=== PATIENT | male | born 1930 | race Caucasian/White ===

== ENCOUNTER → 2016-09-17 | Outpatient (CLI) | payer MEDICARE, BC ==
[~2016-09-17] MED LIST: ATIVAN PO; BACTRIM DS TABL1 TAB PO; CIPRO PO; FLOMAX0.4 MG PO; HYDROCODONE-APA1 T56 PO; LORAZEPAM1 MG PO; NAMENDA XR28 MG PO; PAIN RELIEF650 MG PO; PHENERGAN PO; PHENERGAN25 MG PO; PREVAGEN; SINUS MED; TAMOXIFEN CITRA20 MG PO; TYLOX1 CAP 5/50 PO
--- NOTE | ~2016-09-17 | CR181 ---
[facility] A Service of [facility] RADIOLOGY TEXT RESULTS PATIENT: ERASTO TABARES LOCATION: [facility] : 31 UNIT #: [id number] AGE: [address]: Hermes Mahmood MD SEX: M ORDER DR: [id number] [facility] [address] [place], [place] [address] [id number] O MR#: [id number] Acc #: [id number] NAME: ERASTO TABARES. : 1930 SEX: M STUDY DATE/TIME: 09/17/2016 12:12 UNIT: [facility] ROOM: STUDY DESCRIPTION: CR Lumbar Spine 2 or 3 Views Attending Physician: Hermes Mahmood M.D. Ordering Physician: Hermes Mahmood M.D. Primary Care Physician: Vladimir Mccartney M.D. MEDICAL IMAGING REPORT This report is preliminary unless electronic signature is present EXAM Lumbar spine, 3 views, 09/17/2016. COMPARISON None HISTORY 2-week history of low back pain, recent fall. FINDINGS There is marked osteopenia, and there are several mild compression deformities, but all appear chronic. There is no convincing acute abnormality, though the degree of osteopenia limits the exam. Dictated by... Jona Rivas M.D. THIS IS AN ELECTRONICALLY VERIFIED REPORT Jona Rivas M.D. at 09/22/2016 1:25 PM TEV/javon TD: 09/17/2016 18:35 JOB #: [id number] MEDICAL IMAGING REPORT Page 1 of 1 COPY
== END | disposition home or self-care (01) ==
LOC: CRAD 11:50
DX: C50.922 Malignant neoplasm of unspecified site of left male breast (principal); F03.90 Unspecified dementia, unspecified severity, without behavioral disturbance, psychotic disturbance, mood disturbance, and anxiety
CPT/HCPCS: 72100

== ENCOUNTER 2016-11-11 21:01 | Inpatient (IN) | payer MEDICARE, BC ==
--- NOTE | ~2016-11-11 | CO ---
Unit #: [id number] #: [id number] Patient: ERASTO TABARES [id number] [address] [place], [place] [address] [id number] I MR#: [id number] NAME: ERASTO TABARES. ROOM: [facility] Age: 86 Sex: M Admission Date: 11/12/2016 : 1930 Attending Physician: Yehuda Colon M.D. Primary Care Physician: Vladimir Mccartney M.D. CONSULTATION REPORT CHIEF COMPLAINT Left male breast cancer, mastectomy, triple positive, Taxol, receiving Herceptin, fall, fracture of the pubic ramus. This is Dr. Mahmood's patient. HISTORY OF PRESENT ILLNESS This is an 86-year-old male who was diagnosed with left breast cancer during November 2016. Patient had a mastectomy. The tumor is triple positive. 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 He first received Taxol. At present he is receiving Herceptin and tamoxifen. The last dose was a week ago. He fell and he had a CT of the abdomen and the pelvis that showed fracture of the inferior pubic ramus. It is nondisplaced. Patient also had T12 compression fracture. At present he is on supportive care. He is not a candidate for surgery. He has some memory problems that are gradually worsening. REVIEW OF SYSTEMS CONSTITUTIONAL: No fever, no chills, no sweats, no weight loss. EYES: No visual symptoms. EARS, NOSE AND THROAT: There is no runny nose or sore throat or difficulty hearing. CARDIOVASCULAR: No chest pain. No shortness of breath. No palpitations. No orthopnea. No PND. RESPIRATORY: No cough. No wheezing. No hemoptysis. GASTROINTESTINAL: No nausea, vomiting, diarrhea, constipation, hematochezia or melena. GENITOURINARY: No urinary frequency, hesitancy or urgency. No blood in the urine. MUSCULOSKELETAL: as mentioned above. NEUROLOGIC: No headache. No numbness or tingling. No weakness. No seizure. PSYCHIATRIC: No anxiety, depression or mood disturbance. ENDOCRINE: No excessive urination or thirst. DERMATOLOGIC: No rash or change in the skin. ALLERGIC/IMMUNOLOGIC: No symptoms. HEMATOLOGIC/LYMPHATIC: Denies any symptoms. PAST MEDICAL HISTORY 1. Male breast cancer, triple positive. 2. Worsening dementia. Unit #: [id number] #: [id number] Patient: ERASTO TABARES ALLERGIES Penicillin. SOCIAL HISTORY Nonsmoker, no alcohol, no drugs, used to work in a chemical factory. PAST SURGICAL HISTORY 1. Left breast mastectomy. 2. Appendectomy. FAMILY HISTORY He has multiple half brothers. They have cancer. The patient has just one daughter. PHYSICAL EXAMINATION GENERAL: Patient is comfortable. ECOG is 0. The patient is pleasant. VITAL SIGNS: Afebrile, pulse 75, respiratory rate 18, O2 sat on room air is 95% and blood pressure 97/62. HEENT: Moist mucosa. Pupils equally reactive to light. Extraocular muscles intact. Sclerae anicteric. No obvious bleeding from nasal mucosa or oral mucosa. Scalp normal. Hearing normal. NECK: No JVD. No lymphadenopathy. LYMPHATIC/HEMATOLOGIC: There is no palpable adenopathy in the neck, axilla or inguinal area. CARDIOVASCULAR: S1, S2. Regular rate and rhythm. No S3 or S4. RESPIRATORY: Chest symmetrical, normal. Clear to auscultation bilaterally. No wheezes, no rales, no rhonchi. No dullness to percussion. ABDOMEN/GASTROINTESTINAL: Abdomen is soft, nontender, nondistended. No hepatosplenomegaly. EXTREMITIES: There is no clubbing, no cyanosis, no edema. No varicose veins. NEUROLOGICAL: Patient is alert, awake and oriented x3. Cranial nerves II-XII are intact. Sensory grossly intact. Motor is 4/5 in all four extremities. Gait is normal. Station is normal. Language is normal. Memory is normal. DTRs +2 in all four extremities. MUSCULOSKELETAL: No joint swelling. No bony tenderness. No muscle tenderness. SKIN: No petechiae, no rash, no ecchymosis. PSYCHIATRIC: No anxiety. No delusions or hallucinations. There is no agitation. Eye contact is normal. Affect is appropriate. There is no flight of ideas. DIAGNOSTIC STUDIES IMAGING: CT scan as mentioned above. LABORATORY: Last creatinine 0.8. LFTs are normal. WBC 13.1, hemoglobin 13.9 and platelets 200. ASSESSMENT AND PLAN This is an 86-year-old male with the following active issues: 1. Breast cancer. The patient has a left-sided breast cancer. This is a unique situation. He had a mastectomy. It is triple positive. He first received Taxol. He is receiving Herceptin and tamoxifen. Once his acute condition resolves then he will go and complete Herceptin for one year. He will continue tamoxifen. 2. Orthopedics. He has a fracture of the inferior left pubic ramus. It is nondisplaced. I reviewed the orthopedic notes. He is on supportive care. No surgery. He also has a compression fracture of Unit #: [id number] #: [id number] Patient: ERASTO TABARES thoracic 12, again he is on supportive care. 3. Memory. I had an extensive discussion with patient during last one year he had a significant decline in performance status. His memory is worsening. Prognosis is guarded Dictated by... Aleksey Collado M.D. LAVELL/yair TD: 11/12/2016 18:35 JOB #: [id number] CONSULTATION REPORT Page 1 of 1 X Aleksey Collado MD X CONSULTATION REPORT
--- NOTE | ~2016-11-11 | HP ---
Unit #: [id number] #: [id number] Patient: ERASTO TABARES [id number] [address] [place], [place] [address] [id number] I MR#: [id number] NAME: ERASTO TABARES ROOM: 466 Age: 86 Sex: M Admission Date: 11/12/2016 : 1930 Attending Physician: Hillary Rowland M.D. Primary Care Physician: Vladimir Mccartney M.D. HISTORY AND PHYSICAL CHIEF COMPLAINT Left inferior pelvic ramus fracture. HISTORY This pleasant, 86-year-old male currently being treated for metastatic breast cancer with some early dementia is admitted for left groin pain following a fall. Last evening, the patient slipped and fell mainly onto his left and buttocks, did hit his head around 8:00 p.m. Had difficulty ambulating afterwards. He was brought to this emergency department late last evening with stable vital signs. Does have left groin discomfort with movement of his left leg. In the course of his evaluation, x-rays demonstrate a left inferior pelvis ramus fracture, which is nondisplaced. Due to some complaints of mid to lower back pain, ongoing for the past week, a CT scan was performed of the abdomen showing a T12 fracture with 25% loss of height, but with some sclerosis. Rule out pathologic fracture. Also noted was a right 11th posterior rib fracture. Patient is actually able to sit up without difficulty and does not complain of right rib pain. PAST MEDICAL HISTORY 1. Mild dementia. 2. Breast cancer, status post left mastectomy, 01/07/2016. Patient was found to have one out of four positive lymph nodes. Was unable to complete chemotherapy as he was unable to tolerate the side effects. Takes tamoxifen and Herceptin. 3. Hernia repair. 4. TURP. 5. Appendectomy. ALLERGIES To latex. HOME MEDICATIONS Sleeping aid and what sounds to be Namenda and tamoxifen. FAMILY HISTORY Noncontributory given patient's age. SOCIAL HISTORY The patient lives with his . He is a lifelong nonsmoker and does not drink alcohol. REVIEW OF SYSTEMS Unit #: [id number] #: [id number] Patient: ERASTO TABARES Somewhat difficult to obtain due to patient's confusion. PHYSICAL EXAMINATION GENERAL APPEARANCE: Pleasantly confused, young-appearing, 86-year-old male currently is in no acute distress. VITAL SIGNS: Temperature 98.3, pulse 68, respirations 16, blood pressure 105/63, and O2 saturation is 98% on room air. HEENT: Eyes: PERRLA. Extraocular muscles are intact. Pharynx: Benign. NECK: Supple without adenopathy or thyromegaly. CHEST: Clear. BACK: Without percussion tenderness over the spine. CARDIAC: Normal S1 and S2 with a very soft systolic murmur. ABDOMEN: Bowels sounds are present. No hepatosplenomegaly, tenderness, or masses. EXTREMITIES: Without edema. Movement of the left hip causes some left groin discomfort. NEUROLOGIC: Patient is oriented to person and, I believe, to place, but he is pleasantly confused. His cranial nerves are intact. He has equal strength throughout. DIAGNOSTIC STUDIES ADMISSION LABORATORY: Hematocrit is 43.1, white blood count is 13.1, and normal platelet count. Cardiac markers are negative. Normal coags. SMA-12 normal, except for an AST of 141. Urinalysis negative. IMAGING: Chest x-ray: No acute disease. X-ray of the left hip: Left inferior pelvic ramus fracture, which is nondisplaced. CT of the head: Atrophy with small vessel ischemic disease. CT scan of the abdomen shows a T12 fracture with 25% loss of height, but with some sclerosis. Rule out pathologic fracture. Also, a right 11th posterior rib fracture. ASSESSMENT 1. Mechanical fall with left inferior pelvic ramus fracture. 2. T12 fracture, rule out metastatic disease. 3. Right 11th rib fracture. 4. Breast cancer with mastectomy last year. Patient was found to have one out of four positive lymph nodes. He was unable to complete a full course of chemotherapy due to side effects. Currently takes tamoxifen and Herceptin. 5. Dementia. PLANS 1. Gentle pain control. 2. DVT prophylaxis. 3. Orthopedic surgeon to determine when patient can ambulate. 4. MRI of the T12 vertebra. 5. Verify home medicines. Dictated by Hillary Rowland M.D. Unit #: [id number] #: [id number] Patient: ERASTO TABARES AML/pc TD: 11/12/2016 05:15 JOB #: [id number] HISTORY AND PHYSICAL Page 1 of 1 X Hillary Rowland MD X HISTORY AND PHYSICAL
--- NOTE | ~2016-11-11 | CT71 ---
[facility] A Service [facility] RADIOLOGY TEXT RESULTS PATIENT: ERASTO TABARES LOCATION: [facility] : 31 UNIT #: [id number] AGE: [address]: Hillary Rowland MD SEX: M ORDER DR: [id number] [facility] [address] [place], [place] [address] [id number] I MR#: [id number] Acc #: [id number] NAME: ERASTO TABARES. : 1930 SEX: M STUDY DATE/TIME: 11/11/2016 23:12 UNIT: [facility] ROOM: [facility] STUDY DESCRIPTION: CT Head Wo Contrast Attending Physician: Hillary Rowland M.D. Ordering Physician: Von Redman D.O. Primary Care Physician: Vladimir Mccartney M.D. MEDICAL IMAGING REPORT This report is preliminary unless electronic signature is present EXAM CT head INDICATIONS Fall. Headache. Confusion. TECHNIQUE CT head without contrast. This CT exam was performed with one or more of the following radiation dose reduction techniques: Automatic exposure control, adjustment of mA and/or kV according to patient size, and iterative reconstruction. COMPARISON CT head 04/09/2010. FINDINGS There is no acute intracranial hemorrhage, mass lesion, or acute infarct. There is generalized global cerebral atrophy and chronic small vessel changes. The ventricles and basilar cisterns are normal in size and configuration. No extraaxial collections. There is some mild mucosal thickening in the paranasal sinuses. IMPRESSION 1. No acute traumatic findings. Atrophy and chronic small vessel changes. Dictated by... Enio George M.D. THIS IS AN ELECTRONICALLY VERIFIED REPORT Enio George M.D. at 11/12/2016 4:19 AM [facility] A Service [facility] RADIOLOGY TEXT RESULTS PATIENT: ERASTO TABARES LOCATION: [facility] : 31 UNIT #: [id number] AGE: [address]: Hillary Rowland MD SEX: M ORDER DR: TD: 11/12/2016 04:15 JOB #: [id number] MEDICAL IMAGING REPORT Page 1 of 1 COPY
--- NOTE | ~2016-11-11 | CO ---
Unit #: [id number] #: [id number] Patient: ERASTO HERNANDEZ [id number] [address] [place], [place] [address] [id number] I MR#: [id number] NAME: ERASTO HERNANDEZ ROOM: 466 Age: 86 Sex: M Admission Date: 11/12/2016 : 1930 Attending Physician: Hillary Rowland M.D. Primary Care Physician: Vladimir Mccartney M.D. CONSULTATION REPORT CHIEF COMPLAINT Left inferior pubic ramus fracture. HISTORY OF PRESENT ILLNESS Mr. Hernandez is an 86-year-old gentleman who presents with a history of left hip and groin pain after a fall. He has been diagnosed with an inferior pubic ramus fracture. He is seen today at his hospital bed with his daughter. He is complaining of minimal pain at rest. PAST MEDICAL HISTORY Breast cancer with positive lymph nodes. He is followed by Dr. Mahmood and has been on Herceptin. Additionally, he has had some posterior rib or flank pain over the past week, as well as some low back pain. CT scan is available for review as well. PAST MEDICAL HISTORY 1. Breast cancer status post left mastectomy with positive lymph node, currently on tamoxifen and Herceptin. 2. Mild dementia. PAST SURGICAL HISTORY 1. Herniorrhaphy. 2. TURP. 3. Appendectomy. SOCIAL HISTORY The patient lives with his . He has no alcohol, tobacco or illicit drug use. FAMILY HISTORY Not contributory to the current illness. ALLERGIES Latex. HOME MEDICATIONS Unknown. He takes unknown sleep agent as well as medication for dementia. REVIEW OF SYSTEMS Ten systems are reviewed and positive as noted above in the HPI for known breast cancer and preceding musculoskeletal pain. PHYSICAL EXAMINATION GENERAL APPEARANCE: Age appropriate appearing gentleman examined supine Unit #: [id number] #: [id number] Patient: ERASTO HERNANDEZ in his hospital bed, no acute distress. PSYCHIATRIC: Awake, alert and oriented to person, place, time and situation with a normal range of mood and affect. HEENT: Normocephalic, atraumatic cranium. Pupils equal, round and reactive to light. CARDIAC: Regular rate and rhythm. PULMONARY: No increased work of breathing. Symmetric chest rise. ABDOMEN: Nondistended. NEUROLOGIC: Grossly intact throughout, moving all four extremities well. No gross motor or sensory deficits. SKIN: No overlying skin rashes, ulcers or lesions are noted. VASCULAR: His feet are warm and well perfused. LYMPHATIC: No evidence of lymphedema. MUSCULOSKELETAL: He has no pain with log rolling or passive range of motion to the left hip. He tolerates hip flexion to at least 100 degrees with internal and external rotation without difficulty. DIAGNOSTIC STUDIES IMAGING: Plain film radiographs of the pelvis demonstrates a left inferior pubic ramus fracture. There is no obvious superior ramus fracture. It is difficult to determine if this is pathologic in nature by plain film radiographs. CT scan of the abdomen and pelvis shows a T12 fracture with some suggestion of possible pathologic fracture. Note is made of a right 11th posterior rib fracture as well. IMPRESSION An 86-year-old gentleman with a history of lymph node positive breast cancer now with multiple fractures including left inferior pubic ramus fracture, T12 vertebral body fracture and right 11th posterior rib fracture. Overall findings are concerning for metastatic breast cancer. PLAN In regard to his left pubic ramus fracture, he may be weightbearing as tolerated. We will have him seen and evaluated by Physical Therapy to determine whether or not he is suitable to be discharged home or may require rehab placement. His T12 compression fracture may be managed symptomatically. If he has continued pain, he may benefit from bracing. We will further assess this once he is up and ambulatory. No treatment is required for his rib fracture. We will ask Dr. Mahmood to see him in consultation as well to see if further workup is warranted for metastatic disease. He is an established patient of Dr. Mahmood. Thank you for the consult. Dictated by... Trenton Pitt M.D. SUZANNE/zhao TD: 11/12/2016 09:02 JOB #: [id number] Unit #: [id number] #: [id number] Patient: ERASTO HERNANDEZ CONSULTATION REPORT Page 1 of 1 X Trenton Pitt MD CONSULTATION REPORT
--- NOTE | ~2016-11-11 | CR72 ---
[facility] A Service of [facility] & [facility] RADIOLOGY TEXT RESULTS PATIENT: ERASTO TABARES LOCATION: [facility] [address] : [birth year] UNIT #: [id number] AGE: [address]: Yehuda Colon MD SEX: M ORDER DR: [id number] [facility] [address] [place], [place] [address] [id number] I MR#: [id number] Acc #: [id number] NAME: ERASTO TABARES. : 1930 SEX: M STUDY DATE/TIME: 11/12/2016 0:24 UNIT: [facility] ROOM: [facility] STUDY DESCRIPTION: CR Chest Single View Portable Attending Physician: Hillary Rowland M.D. Ordering Physician: Von Redman D.O. Primary Care Physician: Vladimir Mccartney M.D. MEDICAL IMAGING REPORT This report is preliminary unless electronic signature is present EXAM Single view chest INDICATION Fall. Weakness. Back pain. FINDINGS A single portable AP view of the chest compared to 09/04/2006. The heart and mediastinal contours are unchanged. There is mild tortuosity of the thoracic aorta. There is background COPD. No focal consolidation. No pleural effusion. IMPRESSION No acute cardiopulmonary findings. Dictated by... Enio George M.D. THIS IS AN ELECTRONICALLY VERIFIED REPORT Enio George M.D. at 11/15/2016 2:13 PM BALBINA/kennedy TD: 11/12/2016 06:48 JOB #: [id number] MEDICAL IMAGING REPORT Page 1 of 1 COPY
--- NOTE | ~2016-11-11 | CR150 ---
[facility] A Service of [facility] RADIOLOGY TEXT RESULTS PATIENT: ERASTO TABARES LOCATION: [facility] [address] : [birth year] UNIT #: [id number] AGE: [address]: Yehuda Colon MD SEX: M ORDER DR: [id number] [facility] [address] [place], [place] [address] [id number] I MR#: [id number] Acc #: [id number] NAME: ERASTO TABARES. : 1930 SEX: M STUDY DATE/TIME: 11/11/2016 23:21 UNIT: [facility] ROOM: [facility] STUDY DESCRIPTION: CR Hip Min 2 Views Lt Attending Physician: Hillary Rowland M.D. Ordering Physician: Von Redman D.O. Primary Care Physician: Vladimir Mccartney M.D. MEDICAL IMAGING REPORT This report is preliminary unless electronic signature is present EXAM Left hip INDICATION Trauma. Left leg pain. FINDINGS There is a nondisplaced fracture of the inferior pubic ramus. The left hip aligns anatomically. There is mild osteoarthritis of both hips. IMPRESSION Nondisplaced fracture of the inferior pubic ramus. Dictated by... Enio George M.D. THIS IS AN ELECTRONICALLY VERIFIED REPORT Enio George M.D. at 11/15/2016 4:15 PM BALBINA/kennedy TD: 11/12/2016 06:16 JOB #: [id number] MEDICAL IMAGING REPORT Page 1 of 1 COPY
--- NOTE | ~2016-11-11 | CR181 ---
[facility] A Service of [facility] RADIOLOGY TEXT RESULTS PATIENT: ERASTO ATBARES LOCATION: [facility] 466-01 : 31 UNIT #: [id number] AGE: [address]: Yehuda Colon MD SEX: M ORDER DR: [id number] [facility] [address] [place], [place] [address] [id number] I MR#: [id number] Acc #: [id number] NAME: ERASTO TABARES. : 1930 SEX: M STUDY DATE/TIME: 11/11/2016 23:18 UNIT: [facility] ROOM: [facility] STUDY DESCRIPTION: CR Lumbar Spine 2 or 3 Views Attending Physician: Hillary Rowland M.D. Ordering Physician: Von Redman D.O. Primary Care Physician: Vladimir Mccartney M.D. MEDICAL IMAGING REPORT This report is preliminary unless electronic signature is present EXAM Lumbar spine INDICATION Low back pain status post fall. Radiation in left leg. FINDINGS Three views of the lumbar spine compared to CT abdomen dated 11/11/2016. There is generalized osteopenia of the lumbar spine. There is a T12 fracture better visualized on the recent CT. Multilevel degenerative changes are noted. IMPRESSION 1. Generalized osteopenia of the lumbar spine. 2. T12 fracture better visualized on today's CT abdomen. Dictated by... Enio George M.D. THIS IS AN ELECTRONICALLY VERIFIED REPORT Enio George M.D. at 11/15/2016 4:15 PM BALBINA/kennedy TD: 11/12/2016 06:11 JOB #: [id number] MEDICAL IMAGING REPORT Page 1 of 1 COPY
--- NOTE | ~2016-11-11 | DS ---
Unit #: [id number] #: [id number] Patient: ERASTO HERNANDEZ [id number] [address] [place], [place] [address] [id number] I MR#: [id number] NAME: ERASTO HERNANDEZ. ROOM: [facility] Age: 86 Sex: M Admission Date: 11/12/2016 : 1930 Discharge Date: 11/15/2016 Attending Physician: Yehuda Colon M.D. Primary Care Physician: Vladimir Mccartney M.D. DISCHARGE SUMMARY PRINCIPAL DIAGNOSES 1. Left inferior pubic ramus fracture, traumatic. 2. Thoracic 12 compression fracture, ? traumatic versus pathologic. 3. Right eleventh rib fracture, ? traumatic versus pathologic. 4. Left breast cancer, currently maintained on tamoxifen. 5. Iron deficiency anemia. 6. Mild protein malnutrition. 7. Dementia. 8. Anxiety. CONSULTANTS 1. Dr. Pitt, orthopedic surgery. 2. Dr. Collado, oncology. DIAGNOSTIC STUDIES IMAGING: CT of the head without contrast on November 11, 2016 with atrophy and chronic small vessel change noted. CT of abdomen and pelvis without contrast on November 11, 2016 with acute fracture of the T12 vertebra resulting in 25% anterior height loss. There was generalized sclerosis of the vertebral body concerning for questionable pathologic fracture. There is a right posterior rib fracture involving the T11 vertebra, nondisplaced fracture involving the inferior left pubic ramus. Lumbar X-ray on November 11, 2016 with generalized osteopenia. X-ray of left hip on November 11, 2016 with nondisplaced fracture of the inferior pubic ramus. Chest x-ray on November 12, 2016 with changes of COPD. No other acute findings. CLINICAL HISTORY AND HOSPITAL COURSE Mr. Hernandez is a nice 86-year-old male who presented to the emergency department with left hip pain after a fall at home. Please refer to H and P for further details. Imaging in the emergency department revealed a left inferior pubic ramus fracture that was nondisplaced. Further imaging revealed a T12 compression fracture in addition to a right rib fracture in association with T11. The patient was subsequently admitted. The patient was seen in consultation by orthopedic surgery, but there is no need for surgical intervention. The patient can be weightbearing as tolerated and follow up with hematology/oncology and/or his primary care Unit #: [id number] #: [id number] Patient: ERASTO HERNANDEZ physician with x-ray in approximately 4 weeks to ensure improvement. Dr. Collado was consulted given there is concern that, perhaps, the patient's compression fracture and rib fracture were pathologic. However, I will note at this time the patient has not tolerated any chemotherapy and is being maintained on tamoxifen and Herceptin only. I believe plan is for the patient to go to rehab and then evaluation for possible pathologic fracture will be done as an outpatient. The patient's other chronic conditions all remained stable. He was found to be mildly iron deficient, and he has been placed on iron supplementation. He will be discharged to rehab when bed is available. DISCHARGE CONDITION Stable. DISCHARGE STATUS Discharge to rehab. DISCHARGE MEDICATIONS 1. Tylenol 650 mg p.o. q.6 hours p.r.n. pain. 2. Tamoxifen 20 mg daily. 3. Ativan 0.5 mg p.o. q.8 hours p.r.n. anxiety. 4. Namenda XR 28 mg daily. 5. Ferrous gluconate 324 mg daily. DISCHARGE INSTRUCTIONS Patient was instructed to follow a heart healthy diet. He can increase his activity as tolerated and, again, is weightbearing as tolerated on the left lower extremity. FOLLOW-UP 1. Patient will follow up with Dr. Mccartney upon discharge from rehab. 2. Patient will follow up with Dr. Collado in approximately 2-3 weeks, as well, after discharge from rehab. 3. Will require repeat imaging of the left pelvis to ensure improvement in fracture. NOTE: Time spent on discharge - 31 minutes. Dictated by... Liz Willams M.D. TATIANNA/brinda TD: 11/15/2016 13:49 JOB #: [id number] Unit #: [id number] #: [id number] Patient: ERASTO HERNANDEZ DISCHARGE SUMMARY Page 1 of 1 X Liz Willams MD DISCHARGE SUMMARY
--- NOTE | ~2016-11-11 | CT4 ---
[facility] A Service of [facility] RADIOLOGY TEXT RESULTS PATIENT: ERASTO TABARES LOCATION: [facility] 466-01 : 31 UNIT #: [id number] AGE: [address]: Yehuda Colon MD SEX: M ORDER DR: [id number] [facility] [address] [facility]. [place], [place] [address] [id number] MR#: [id number] Acc #: [id number] NAME: ERASTO TABARES. : 1930 SEX: M STUDY DATE/TIME: 11/11/2016 23:14 UNIT: [facility] ROOM: Counts include 234 beds at the [facility] STUDY DESCRIPTION: CT Abd and Pelv Wo Cont Attending Physician: Hillary Rowland M.D. Ordering Physician: Von Redman D.O. Primary Care Physician: Vladimir Mccartney M.D. MEDICAL IMAGING REPORT This report is preliminary unless electronic signature is present EXAM CT abdomen and pelvis INDICATION Fall. Confusion. Generalized abdominal pain. Trauma. TECHNIQUE CT of the abdomen and pelvis without contrast. Coronal and sagittal reconstructions were obtained. This CT examination was performed with one or more of the following radiation dose reduction techniques: automatic exposure control, adjustment of mA and/or kV according to patient size, and iterative reconstruction. COMPARISON CT abdomen 10/06/2006. FINDINGS ABDOMEN: There is emphysema in the lung bases. Noncontrasted evaluation of the solid abdominal organs shows no evidence of trauma. There are a few benign renal cysts. The bowel is not dilated. The abdominal aorta is tortuous, however there is no aneurysm. PELVIS: The bladder is unremarkable. The patient has postsurgical change of transurethral prostatic resection. There is no enlarged pelvic or inguinal lymph nodes. There is a nondisplaced fracture through the inferior left pubic ramus. There is an acute fracture involving the T12 vertebra. This results in 25% anterior height loss with minimal posterior height loss. No retropulsion. There is some generalized sclerosis of the vertebral body. This could potentially represent a pathologic fracture. [facility] A Service [facility] RADIOLOGY TEXT RESULTS PATIENT: ERASTO TABARES LOCATION: [facility] 466- : 31 UNIT #: [id number] AGE: [address]: Yehuda Colon MD SEX: M ORDER DR: IMPRESSION 1. Acute fracture of the T12 vertebra resulting in approximately 25% anterior height loss. There is some generalized sclerosis of the vertebral body raising the possibility of a pathologic fracture. Consider further evaluation with a MRI with and without contrast. 2. Not mentioned above, there is a right posterior rib fracture involving the T11 vertebra. 3. Nondisplaced fracture involving the inferior left pubic ramus. Dictated by... Enio George M.D. THIS IS AN ELECTRONICALLY VERIFIED REPORT Enio George M.D. at 11/15/2016 4:15 PM BALBINA/kennedy TD: 11/12/2016 06:05 JOB #: [id number] MEDICAL IMAGING REPORT Page 1 of 1 COPY
[~2016-11-11 21:01] MED LIST changes: -LORAZEPAM1 MG PO; -TAMOXIFEN CITRA20 MG PO
[2016-11-11 23:14] LABS: POC - CKMB 1.2 ng/mL (0.0-7.9); POC - TROPONIN <0.05 ng/mL (<=0.05)
[2016-11-11 23:26] LABS: BASOPHIL# 0.1 X10e3 (0-0.3); BASOPHIL% 0.4 % (0-2.5); DIFF IND NO; EOSINOPHIL# 0.3 X10e3 (0-0.7); EOSINOPHIL% 2.7 % (0.0-7.0); HEMATOCRIT 43.1 % (38.0-50.0); HEMOGLOBIN 13.9 gm/dL (13.0-16.0); LYMPHOCYTE# 1.3 X10e3 (1.0-3.5); LYMPHOCYTE% 9.8 % (17.0-45.0); MEAN CELL VOLUME 96.9 FL (83-96); MEAN CORPUSCULAR HEMOGLOBIN 31.4 PG (28-34); MEAN CORPUSCULAR HGB CONC 32.4 g/dL (30-36); MEAN PLATELET VOLUME 9.8 FL (6.5-11.5); MONOCYTE# 0.6 X10e3 (0-1.0); MONOCYTE% 4.4 % (3.0-12.0); NEUTROPHIL# 10.8 X10e3 (1.5-7.1); NEUTROPHIL% 82.7 % (40-75); PLATELET COUNT 200 X10e3 (140-420); RED BLOOD COUNT 4.45 X10e (3.90-5.60); RED CELL DISTRIBUTION WIDTH 14.9 % (11.0-15.5); WHITE BLOOD COUNT 13.1 X10e3 (4.0-10.5)
[2016-11-11 23:53] LABS: INR 1.1; PARTIAL THROMBOPLASTIN TIME 27.1 SECONDS (23.5-31.3); PROTHROMBIN TIME (PATIENT) 11.9 SECONDS (10.0-11.7)
[2016-11-11 23:54] LABS: ALBUMIN SERUM 3.7 g/dL (3.5-5.0); BILIRUBIN, DIRECT 0.1 mg/dL (0.0-0.2); BILIRUBIN,INDIRECT 0.3 mg/dL (0.0-0.9); BILIRUBIN,TOTAL 0.4 mg/dL (0.2-2.0); BUN/CREATININE RATIO 26.25; CALCIUM SERUM 8.7 mg/dL (8.4-10.2); CREATININE SERUM 0.8 mg/dL (0.6-1.4); GLOM FILT RATE Estimated 81.5 mL/min (>60); POTASSIUM 4.4 mmol/L (3.5-5.1); PROTEIN TOTAL SERUM 6.3 g/dL (6.0-8.3)
[2016-11-12 00:55] LABS: URINE SOURCE CLEAN CATCH
[2016-11-12 01:20] LABS: CULTURE INDICATED? NO; URINE APPEARANCE CLEAR; URINE BILIRUBIN NEG (NEG); URINE BLOOD NEG (NEG); URINE COLOR YELLOW; URINE GLUCOSE NEG (NEG); URINE KETONE NEG (NEG); URINE LEUKOCYTE ESTERASE NEG (NEG); URINE NITRATE NEG (NEG); URINE PROTEIN NEG (NEG); URINE UROBILINOGEN 0.2 MG/DL (NEG)
[2016-11-12] MEDS ORDERED: TAMOXIFEN CITRA20 MG PO (12:25)
[2016-11-12] MEDS ORDERED: LORAZEPAM1 MG PO (12:26)
[2016-11-12] MEDS ORDERED: NAMENDA XR28 MG PO (12:27)
[2016-11-13 03:34] LABS: HEMATOCRIT 39.8 % (38.0-50.0); HEMOGLOBIN 13.2 gm/dL (13.0-16.0); MEAN CELL VOLUME 95.7 FL (83-96); MEAN CORPUSCULAR HEMOGLOBIN 31.8 PG (28-34); MEAN CORPUSCULAR HGB CONC 33.2 g/dL (30-36); MEAN PLATELET VOLUME 9.6 FL (6.5-11.5); RED BLOOD COUNT 4.16 X10e (3.90-5.60); RED CELL DISTRIBUTION WIDTH 14.8 % (11.0-15.5)
[2016-11-13 03:51] LABS: ALBUMIN SERUM 3.3 g/dL (3.5-5.0); BILIRUBIN,TOTAL 0.9 mg/dL (0.2-2.0); BUN/CREATININE RATIO 23.33; CALCIUM SERUM 8.5 mg/dL (8.4-10.2); CREATININE SERUM 0.9 mg/dL (0.6-1.4); GLOM FILT RATE Estimated 77.6 mL/min (>60); POTASSIUM 4.5 mmol/L (3.5-5.1); PROTEIN TOTAL SERUM 5.7 g/dL (6.0-8.3)
[2016-11-13 04:14] LABS: FERRITIN 104 ng/mL (24-336)
[2016-11-15 03:03] LABS: BASOPHIL# 0.1 X10e3 (0-0.3); BASOPHIL% 1.3 % (0-2.5); EOSINOPHIL# 0.3 X10e3 (0-0.7); EOSINOPHIL% 4.3 % (0.0-7.0); HEMATOCRIT 41.2 % (38.0-50.0); HEMOGLOBIN 13.3 gm/dL (13.0-16.0); LYMPHOCYTE# 0.6 X10e3 (1.0-3.5); LYMPHOCYTE% 8.2 % (17.0-45.0); MEAN CELL VOLUME 96.6 FL (83-96); MEAN CORPUSCULAR HEMOGLOBIN 31.3 PG (28-34); MEAN CORPUSCULAR HGB CONC 32.4 g/dL (30-36); MEAN PLATELET VOLUME 9.6 FL (6.5-11.5); MONOCYTE# 0.6 X10e3 (0-1.0); MONOCYTE% 7.4 % (3.0-12.0); NEUTROPHIL# 6.2 X10e3 (1.5-7.1); NEUTROPHIL% 78.8 % (40-75); PLATELET COUNT 194 X10e3 (140-420); RED BLOOD COUNT 4.26 X10e (3.90-5.60); RED CELL DISTRIBUTION WIDTH 14.7 % (11.0-15.5); WHITE BLOOD COUNT 7.8 X10e3 (4.0-10.5)
[2016-11-15 03:04] LABS: DIFF IND NO
[2016-11-15 03:25] LABS: BUN/CREATININE RATIO 32.85; CALCIUM SERUM 8.1 mg/dL (8.4-10.2); CREATININE SERUM 0.7 mg/dL (0.6-1.4); GLOM FILT RATE Estimated 86.1 mL/min (>60); POTASSIUM 3.7 mmol/L (3.5-5.1)
== END 2016-11-16 16:11 | DRG 536 ==
LOC: CED 21:01 → CEDOF 11-12 02:10 → C4C 11-12 02:10 → CED 11-12 02:22 → CEDOF 11-12 02:22 → C4C 11-12 03:38 → CEDOF 11-12 03:38 → C4C 11-12 09:04
PROVIDERS: Emergency Medicine; Internal Medicine; Internal Medicine Hematology
DX: S32.592A Other specified fracture of left pubis, initial encounter for closed fracture (principal); C77.3 Secondary and unspecified malignant neoplasm of axilla and upper limb lymph nodes; S22.089A Unspecified fracture of T11-T12 vertebra, initial encounter for closed fracture; F03.90 Unspecified dementia, unspecified severity, without behavioral disturbance, psychotic disturbance, mood disturbance, and anxiety; E44.1 Mild protein-calorie malnutrition; S22.31XA Fracture of one rib, right side, initial encounter for closed fracture; W18.30XA Fall on same level, unspecified, initial encounter; C50.922 Malignant neoplasm of unspecified site of left male breast; Z91.040 Latex allergy status; Z17.0 Estrogen receptor positive status [ER+]; Z88.0 Allergy status to penicillin; D50.9 Iron deficiency anemia, unspecified; Z68.25 Body mass index [BMI] 25.0-25.9, adult
CPT/HCPCS: 70450; 71010; 72100; 73502; 74176; 80048; 80053; 80076; 81003; 82553; 82607; 82728; 83540; 83550; 84484; 85025; 85027; 85610; 85730; 97110; 97116; 97162; 97166; 97530; 97535; 99285; G8978-GP; G8979-GP; G8980-GP; G8987-GO; G8987-GP; G8988-GO; G8988-GP; J1650